=== PATIENT | female | born 1970 | race Caucasian/White ===

== ENCOUNTER 2018-07-14 22:35 | Emergency (ER) | payer OTHER ==
[2018-07-14] MEDS ORDERED: Metoclopramide 10 MG/2 ML SDV IVPUSH STA (23:30)
[2018-07-14] MEDS ORDERED: HYDROmorphone 1 MG/ML Syringe IVPUSH ONE (23:30)
[2018-07-14] MEDS ORDERED: Ondansetron 4 MG/2 ML SDV IVPUSH ONE (23:30)
[2018-07-14] MEDS ORDERED: Ketorolac 30 MG/ML SDV IVPUSH STA (23:30)
[2018-07-14] MEDS ORDERED: Lactated Ringers 1,000 ML IV ONE (23:31)
--- NOTE | 2018-07-14 23:34 | EDM.PDOC ---
ED HPI GENERAL MEDICAL PROBLEM - General Chief Complaint: Abdominal Pain Stated Complaint: ABD PAIN Time Seen by Provider: 07/14/18 22:40 Source of Information: Reports: Patient, RN Notes Reviewed History Limitations: Reports: No Limitations - History of Present Illness INITIAL COMMENTS - FREE TEXT/NARRATIVE: The patient states that she has had chronic pancreatitis, due to a genetic abnormality, since 1984. She moved from [place] to [place] a number of years ago, then moved back here in March of this year. Her PCP is currently prescribing all of her medicines, which includes Percocet 10/325, one tablet every 8 hours as needed, reduced from one tablet every 6 hours as needed. The patient states that she has been on Percocet for about 3 years, but that her PCP is trying to wean her off. The patient also states that she has an appointment to see a painting technician. The patient now presents to our ED complaining of stabbing/twisting epigastric abdominal pain, nausea, vomiting, and watery diarrhea, that developed today. The pain is constant, and she has not identified any modifiers. The patient states that she took a Phenergan suppository around 10 AM, but has not taken any of her other medications today. The patient's PCP is Kirstie Emery. She has an appointment to see Dr. Edith Frost, from the [facility]. Treatments TRIAL MANAGER: Reports: Other (see below) Other Treatments TRIAL MANAGER: oxycodone 10-325 mg Upper Abdomen Pain Score (Numeric/FACES): 9 - Related Data Allergies Allergy/AdvReac Type Severity Reaction Status Date / Time Penicillins Allergy Hives Verified 07/14/18 22:45 prochlorperazine Allergy Tremors Verified 07/14/18 22:45 [From Compazine] Past Medical History Gastrointestinal History: Reports: Pancreatitis (chronic, due to genetic abnormality, since 1984) Musculoskeletal History: Reports: Fracture (Vertebral compression), Osteoporosis Neurological History: Reports: Migraines, Neuropathy, Diabetic Psychiatric History: Reports: Anxiety, Other (See Below) (Insomnia) Endocrine/Metabolic History: Reports: Diabetes, Type II (2 chronic pancreatitis ) 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) - Past Surgical History HEENT Surgical History: Reports: Oral Surgery (wisdom teeth extraction), Tonsillectomy Respiratory Surgical History: Reports: Thoracotomy GI Surgical History: Reports: Appendectomy, Cholecystectomy (1985), Other (See Below) (Pancreatic duct surgery) Female Surgical History: Reports: Section (x 2), Other (See Below) ( Hysteroscopy x 2) Dermatological Surgical History: Reports: Other (See Below) (Lipoma off back) Social & Family History - Tobacco Use Smoking Status *Q: Never Smoker - Caffeine Use Caffeine Use: Reports: Coffee, Soda - Alcohol Use Alcohol Use History: No - Recreational Drug Use Recreational Drug Use: No - Living Situation & Occupation Living situation: Reports: , with Spouse, with Family (2 kids) Occupation: Unemployed ED ROS GENERAL - Review of Systems Review Of Systems: ROS reveals no pertinent complaints other than HPI. ED EXAM, GI/ABD - Physical Exam Exam: See Below Exam Limited By: No Limitations General Appearance: Alert, WD/WN, No Apparent Distress Eyes: Bilateral: Normal Appearance, EOMI Ears: Normal External Exam, Hearing Grossly Normal Nose: Normal Inspection Throat/Mouth: Normal Inspection, Normal Lips, Normal Voice, No Airway Compromise Head: Atraumatic, Normocephalic Neck: Normal Inspection, Full Range of Motion Respiratory/Chest: No Respiratory Distress, Lungs Clear, Normal Breath Sounds, No Accessory Muscle Use Cardiovascular: Normal Peripheral Pulses, Regular Rate, Rhythm, No Gallop, No JVD, No Murmur, No Rub GI/Abdominal Exam: Normal Bowel Sounds, Soft, No Organomegaly, No Distention, No Abnormal Bruit, No Mass, Tender (Epigastrium only. Nontender elsewhere.) (Female) Exam: Deferred Rectal (Female) Exam: Deferred Back Exam: Normal Inspection, Full Range of Motion. No: CVA Tenderness (L), CVA Tenderness (R) Extremities: Normal Inspection, Normal Range of Motion, No Pedal Edema, Normal Capillary Refill Neurological: Alert, Oriented, Normal Cognition, No Motor/Sensory Deficits Psychiatric: Normal Affect Skin Exam: Warm, Dry, Intact, Normal Color, No Rash Course - Vital Signs Last Recorded V/S: Last Vital Signs Temp 35.6 C 07/14/18 22:44 Pulse 105 H 07/14/18 22:44 Resp 20 07/14/18 22:44 BP 146/89 H 07/14/18 22:44 Pulse Ox 97 07/14/18 22:44 - Orders/Labs/Meds Orders: Active Orders 24 hr Category Date Time Status KUB [Abdomen 1V Flat] [CR] Stat Exams 07/14/18 23:32 Taken Labs: Laboratory Tests 07/14/18 07/14/18 Range/Units 23:38 23:38 WBC 8.35 (3.98-10.04) K/mm3 RBC 5.22 (3.98-5.22) M/mm3 Hgb 14.3 (11.2-15.7) gm/L Hct 43.7 (34.1-44.9) % MCV 83.7 (79.4-94.8) fl MCH 27.4 (25.6-32.2) pg MCHC 32.7 (32.2-35.5) g/dl RDW Std Deviation 36.2 L (36.4-46.3) fL Plt Count 283 (182-369) K/mm3 MPV 9.4 (9.4-12.3) fl Neutrophils % (Manual) 57 (40-60) % Band Neutrophils % 0 (0-10) % Lymphocytes % (Manual) 41 H (20-40) % Atypical Lymphs % 0 % Monocytes % (Manual) 0 L (2-10) % Eosinophils % (Manual) 2 (0.7-5.8) % Basophils % (Manual) 0 L (0.1-1.2) Platelet Estimate Adequate RBC Morph Comment Normal Sodium 135 L (136-145) mEq/L Potassium 4.0 (3.5-5.1) mEq/L Chloride 97 L (98-107) mEq/L Carbon Dioxide 31 (21-32) mEq/L Anion Gap 11.0 (5-15) BUN 19 H (7-18) mg/dL Creatinine 0.9 (0.55-1.02) mg/dL Est Cr Clr Drug Dosing 74.34 mL/min Estimated GFR (MDRD) > 60 (>60) mL/min BUN/Creatinine Ratio 21.1 H (14-18) Glucose 354 H (74-106) mg/dL Calcium 9.5 (8.5-10.1) mg/dL Magnesium 1.7 L (1.8-2.4) mg/dl Total Bilirubin 0.3 (0.2-1.0) mg/dL AST 15 (15-37) U/L ALT 38 (14-59) U/L Alkaline Phosphatase 178 H (46-116) U/L Total Protein 7.7 (6.4-8.2) g/dl Albumin 3.8 (3.4-5.0) g/dl Globulin 3.9 gm/dL Albumin/Globulin Ratio 1.0 (1-2) Lipase 34 L (73-393) U/L Meds: Medications Discontinued Medications Generic Name Dose Route Start Last Admin Trade Name Lukas PRN Reason Stop Dose Admin Hydromorphone HCl 1 mg 07/14/18 23:30 07/14/18 23:58 Dilaudid IVPUSH 07/14/18 23:31 1 mg ONETIME ONE Administration Lactated Ringer's 1,000 mls @ 999 mls/hr 07/14/18 23:31 07/14/18 23:39 Ringers, Lactated IV 07/15/18 00:31 999 mls/hr .BOLUS ONE Administration Magnesium Sulfate 2 gm/ Premix 50 mls @ 50 mls/hr 07/15/18 00:47 07/15/18 00: 55 IV 07/15/18 01:46 50 mls/hr ONETIME ONE Administration Ketorolac Tromethamine 30 mg 07/14/18 23:30 07/14/18 23:40 Toradol IVPUSH 07/14/18 23:31 30 mg ONETIME STA Administration Metoclopramide HCl 10 mg 07/14/18 23:30 07/14/18 23:44 Reglan IVPUSH 07/14/18 23:31 10 mg ONETIME STA Administration Ondansetron HCl 4 mg 07/14/18 23:30 07/14/18 23:39 Zofran IVPUSH 07/14/18 23:31 4 mg ONETIME ONE Administration - Re-Assessments/Exams Free Text/Narrative Re-Assessment/Exam: 07/14/18 23:32 The patient has not been to this ED previously. She acknowledges that she has been labeled a drug seeker in the past, however, her story makes sense, in that she has insulin-requiring diabetes as result of chronic pancreatitis. I explained to the patient that she will be treated with an opioid pain reliever tonight, but that she cannot expect the ED to treat flares of her pain on a regular basis, that she will need to develop a plan with a single prescriber, and that the EGD can never be that single prescriber. The patient expressed understanding. I have ordered some blood work and a KUB, and for treatment of her symptoms, I have ordered Dilaudid, Reglan, Toradol, Zofran, and IV fluid. The patient drove herself here, but says that her son is on his way. 07/15/18 00:01 KUB appears to demonstrate a collection of small bowel gas on the right side of the abdomen, and there is a suggestion of calcification in the vicinity of the pancreas. No significant quantity of stool seen. Formal read per the Radiologist pending. 07/15/18 00:47 Test results discussed with the patient: The patient's CBC is unremarkable. The patient's CMP is remarkable for a sodium slightly depressed at 135, a BUN mildly elevated at 19, and a blood glucose significantly elevated at 354. The remainder of her CMP is unremarkable. The patient's magnesium is slightly low at 1.7. The patient's lipase is low at 34. The patient states that she has her own insulin here, and will treat the hyperglycemia on her own. I have ordered a 2 g Mg-rider to replace her magnesium , and once infused, she may safely be discharged home. 07/15/18 02:10 The Mg-rider has finished infusing. The patient tells me that she gave herself some insulin. She states that she feels better. I will discharge her home. Departure - Departure Time of Disposition: 02:11 Disposition: Home, Self-Care 01 Condition: Good Clinical Impression: Chronic pancreatitis, Hypomagnesemia, Hyperglycemia - Discharge Information *PRESCRIPTION DRUG MONITORING PROGRAM REVIEWED*: Not Applicable *COPY OF PRESCRIPTION DRUG MONITORING REPORT IN PATIENT JENNY: Not Applicable Instructions: Chronic Pancreatitis, Hypomagnesemia, Hyperglycemia, [id number] Referrals: Kirstie Emery NP [Primary Care Provider] - Edith Frost MD [Resident] - Forms: ED Department Discharge Additional Instructions: You were seen in the emergency room for abdominal pain, nausea, vomiting, and watery diarrhea associated with your chronic pancreatitis. Workup in the ER included blood work and a KUB x-ray. Your workup found your blood sugar to be elevated at 354, and your magnesium level to be slightly low at 1.7. You received IV fluid, pain medicine, and antinausea medicine in the ER. You gave yourself some insulin, and your magnesium was replaced through an IV. Follow-up with your PCP, Kirstie Emery, as needed, and with Dr. Edith Frost at the [facility], at your previously scheduled appointment. If any other problems, please do not hesitate to return to the ER. - My Orders Last 24 Hours: My Active Orders 07/14/18 23:32 KUB [Abdomen 1V Flat] [CR] Stat - Assessment/Plan Last 24 Hours: My Active Orders 07/14/18 23:32 KUB [Abdomen 1V Flat] [CR] Stat
[2018-07-15] MEDS ORDERED: Magnesium Sulfate/Water 2 GM in Premix Bag 1 BAG IV ONE (00:47)
--- NOTE | 2018-07-15 11:42 | CR ---
Abdomen: Supine view of the abdomen was obtained. Comparison: No previous study. Scattered gas within colon and small bowel is seen. No bowel dilatation is noted. No abnormal calcifications or discrete soft tissue abnormality is seen. Bony structures are unremarkable. Impression: 1. Gas within small bowel and colon. Difficult to exclude a mild small bowel ileus on the right side. No obstruction is identified. 2. No additional abnormality is appreciated. Diagnostic code #3
== END 2018-07-15 02:26 | disposition home or self-care (01) ==
LOC: SUPCPDRO 22:35 → JD.ED 22:35
DX: K86.1 Other chronic pancreatitis (principal); E83.42 Hypomagnesemia; E11.65 Type 2 diabetes mellitus with hyperglycemia; E11.40 Type 2 diabetes mellitus with diabetic neuropathy, unspecified; Z88.0 Allergy status to penicillin; Z88.8 Allergy status to other drugs, medicaments and biological substances; Z90.49 Acquired absence of other specified parts of digestive tract; Z98.890 Other specified postprocedural states
CPT/HCPCS: 36415; 74018; 80053; 83690; 83735; 85007; 85027; 96361; 96365; 96375; 99284; J1170; J1885; J2405; J2765; J3475; J7120